=== PATIENT | male | born 1965 | race Hispanic/Latino ===

== ENCOUNTER → 2019-02-11 | Outpatient (CLI) | payer BC ==
--- NOTE | 2019-02-11 10:41 | Diagnostic Imaging Report ---
Left knee MRI without contrast. History: Knee pain. Fall. Medial collateral ligament sprain Comparison: None. Technique: Multiplanar multi-sequence MRI of the knee without contrast. Findings: Medial compartment: Midsubstance degeneration of the medial meniscus without tear. There is a mild medial meniscocapsular sprain. The medial collateral ligament complex is otherwise intact. The medial compartmental articular cartilage surfaces are slightly thinned with regions of fraying and fissuring. Lateral compartment: Degeneration and fraying at the anterior horn. No meniscal tear or cartilage abnormality. The LCL complex is normal. Intercondylar notch: Degeneration and scarring of the anterior cruciate ligament with adjacent ganglion/synovial cyst at the anterior joint line best seen on sagittal image 17.. The ACL and PCL are otherwise intact. Patellofemoral compartment: No chondromalacia or patellar dislocation. Extensor mechanism: The quadriceps and patellar tendons are normal. Other findings: There is a joint effusion and synovitis. There is no acute fracture, subluxation or avascular necrosis. Marked prepatellar soft tissue edema with 2.0 cm fluid collection anterior to the inferior aspect of the patella likely due to an evolving hematoma. IMPRESSION: Marked prepatellar soft tissue edema with 2.0 cm fluid collection anterior to the inferior aspect of the patella likely due to an evolving hematoma. Mild medial meniscocapsular sprain. The medial collateral ligament complex is otherwise intact. 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 Degeneration and fraying at the anterior horn of the lateral meniscus. Signed by: Dr. Josué Acosta M.D. on 02/11/2019 10:37 AM
== END ==
LOC: MRI 07:34
PROVIDERS: ATTEND Internal Medicine
DX: S83.412A Sprain of medial collateral ligament of left knee, initial encounter (principal)

== ENCOUNTER → 2022-01-29 | Day surgery (SDC) | payer BC ==
[~2022-01-29] MED LIST: ASPIRIN81 MG PO; FENTANYL CITRATE/PF 100MCG/2 ML INJ ONE; HYOSCYAMINE SULFATE 0.5 MG/ML INJ ONE; LIDOCAINE HCL 2% LOCAL INJ 5 ML SDV VIAL INJ ONE; LIPITOR10 MG PO; MIDAZOLAM HCL 2 MG/2 ML VIAL ONE; OMEGA 3 1,0001 EACH PO; PROPOFOL IV EMULSION 10 MG/ML 20 ML VIAL ONE; STRESS B-COMPL1 EACH PO; VITAMIN D PO; ZINC PO
[2022-01-29 10:50] VITALS: BP 127/86
== END | disposition home or self-care (01) ==
LOC: OR 08:21
PROVIDERS: ATTEND Internal Medicine Gastroenterology
DX: Z12.11 Encounter for screening for malignant neoplasm of colon (principal); K62.1 Rectal polyp; K64.8 Other hemorrhoids; I10 Essential (primary) hypertension; F41.9 Anxiety disorder, unspecified; R19.5 Other fecal abnormalities; Z68.29 Body mass index [BMI] 29.0-29.9, adult; R03.0 Elevated blood-pressure reading, without diagnosis of hypertension; E78.00 Pure hypercholesterolemia, unspecified; Z86.010 Personal history of colon polyps; Z01.812 Encounter for preprocedural laboratory examination; Z20.822 Contact with and (suspected) exposure to COVID-19
CPT/HCPCS: 0223U; 36415; 45380; J1980; J2001; J2250; J2704; J3010; 45378